=== PATIENT | male | born 1950 | race Caucasian/White ===

== ENCOUNTER → 2019-04-01 | Outpatient (CLI) | payer OTHER ==
[~2019-04-01] MED LIST: ASCO-262 PO; DULO30CA49 PO; FINA5TAB6 PO; LISI-552 PO; METF-397 PO; MULT-1029 PO; PHEN-640 PO; PREG75CA PO; SIMV40TA4 PO; SULF1TAB35 PO; TAMS0.4C98 PO; TIOT4MIS2 IH
== END ==
LOC: EDSEX 05:56 → PREOP 05:56
PROVIDERS: ATTEND Urology
DX: Z01.818 Encounter for other preprocedural examination (principal); N40.1 Benign prostatic hyperplasia with lower urinary tract symptoms; R33.9 Retention of urine, unspecified

== ENCOUNTER 2019-04-02 06:56 | Day surgery (SDC) | payer MEDICARE, OTHER ==
[2019-04-02] VITALS (9 sets, daily range): BP systolic 114–146; BP diastolic 66–88
[~2019-04-02] VITALS: Ht 185.4 cm; Wt 95.3 kg
--- NOTE | 2019-04-02 06:56 | Progress Note-Pre Operative ---
Pre-Operative Progress Note H&P Reviewed The H&P was reviewed, patient examined and no changes noted. Date Seen by Provider: Apr 02, 2019 Time Seen by Provider: 07:04 Date H&P Reviewed: Apr 02, 2019 Time H&P Reviewed: 07:04 Pre-Operative Diagnosis: BPH WITH PROSTATISM REFRACTORY TO MEDICAL TREATMENT NASRA BILLY MD Apr 02, 2019 06:56
[2019-04-02] MEDS: LACTATED RINGERS 1,000 ML IV PRN ×2 (07:40→09:10)
[2019-04-02] MEDS ORDERED: cefTRIAXone 1,000 MG/SWFI 10 ML IV PUSH IV ONE ×2 (08:00)
[2019-04-02] MEDS ORDERED: CATHETER FLUSH 10 ML SYR IV PRN (08:00)
[2019-04-02] MEDS ORDERED: MULT-1029 PO (08:16)
[2019-04-02] MEDS ORDERED: FINA5TAB6 PO (08:16)
[2019-04-02] MEDS ORDERED: LISI-552 PO (08:16)
[2019-04-02] MEDS ORDERED: DULO30CA49 PO (08:16)
[2019-04-02] MEDS ORDERED: TAMS0.4C98 PO (08:16)
[2019-04-02] MEDS ORDERED: PREG75CA PO (08:16)
[2019-04-02] MEDS ORDERED: TIOT4MIS2 IH (08:16)
[2019-04-02] MEDS ORDERED: METF-397 PO (08:16)
[2019-04-02] MEDS ORDERED: SIMV40TA4 PO (08:16)
[2019-04-02] MEDS ORDERED: ASCO-262 PO (08:16)
[2019-04-02] MEDS ORDERED: proPOfol 200 MG/20 ML (DIPRIVAN) VIAL IV ONE (08:25)
[2019-04-02] MEDS ORDERED: fentaNYL INJECTION 100 MCG/2 ML AMP ONE (08:25)
[2019-04-02] MEDS ORDERED: MIDAZOLAM 2 MG/2 ML (VERSED) VIAL ONE (08:26)
[2019-04-02] MEDS ORDERED: LIDOCAINE PF 2% 5 ML (XYLOCAINE) VIAL ONE (09:06)
[2019-04-02] MEDS ORDERED: ONDANSETRON 4 MG/2 ML (SDV) Z0FRAN ONE (09:06)
[2019-04-02] MEDS ORDERED: SEVOFLURANE (ULTANE) 15 ML INHAL SOLN ONE ×2 (09:06→09:26)
--- NOTE | 2019-04-02 09:37 | Progress Note-Post Operative ---
Post-Operative Progess Note Surgeon (s)/Licensed Funeral Director And Embalmer (s) Surgeon NASRA BILLY MD Licensed Funeral Director And Embalmer: NONE Pre-Operative Diagnosis BPH WITH PROSTATISM REFRACTORY TO MEDICAL TREATMENT Post-Operative Diagnosis SAME Procedure & Operative Findings Date of Procedure 04/02/19 Procedure Performed/Findings UROLIFT IMPLANTS Anesthesia Type GENERAL Estimated Blood Loss Estimated blood loss (mL): NEGLIGIBLE Specimens/Packing Specimens Removed NONE Packing: NONE NASRA BILLY MD Apr 02, 2019 09:37
--- NOTE | 2019-04-02 09:39 | Discharge Inst-Urology ---
Discharge Inst-Urology Reconcile Patient Problems Problems Reviewed?: Yes Patient Instructions/Follow Up Plan/Assessment/Instructions Please make appointment to been seen in office in 2 weeks. Rest till then Keep bowels soft and moving Continue Flomax and Finasteride till office appointment Increase oral fluids for 48 hours and then as needed. Diet as tolerated. If questions or concerns contact your physician Or seek help at emergency department. NASRA BILLY MD Apr 02, 2019 09:39
[2019-04-02] MEDS ORDERED: ONDANSETRON 4 MG/2 ML (SDV) Z0FRAN IVP PRN (09:45)
[2019-04-02] MEDS ORDERED: morphine INJ 10 MG/ML 1ML (SYR OR VIAL) IVP ONE (09:45)
[2019-04-02] MEDS ORDERED: PHENAZOPYRIDINE 100 MG (PYRIDIUM) TABLET ONE (10:27)
--- NOTE | 2019-04-02 10:38 | NUR ---
PYRIDIUM 200 MG GIVEN PO FOR C/O PELVIC PRESSURE/DISCOMFORT RATED 3.
[2019-04-02] MEDS ORDERED: PHENAZOPYRIDINE 100 MG (PYRIDIUM) TABLET PO ONE (10:45)
[2019-04-02] MEDS ORDERED: SULF1TAB35 PO (11:25)
[2019-04-02] MEDS ORDERED: PHEN-640 PO (11:25)
--- NOTE | 2019-04-02 11:45 | NUR ---
HAS BEEN RESTING QUIETLY IN BED WITH EYES CLOSED. AWAKENS EASILY, PELVIC PRESSURE/DISCOMFORT RATED 2. HAS HAD A FEW DROPS OF BLOOD FROM PENIS WHEN UP TO BR, BUT NO ACTIVE BLEEDING. TAKING PO FLUIDS WITHOUT PROBLEM.
--- NOTE | 2019-04-02 13:07 | OPERATIVE REPORT ---
DATE OF SERVICE: 04/02/2019 PREOPERATIVE DIAGNOSIS: Benign prostatic hypertrophy with prostatism refractory to medical treatment. POSTOPERATIVE DIAGNOSIS: Benign prostatic hypertrophy with prostatism refractory to medical treatment. OPERATION PERFORMED: UroLift implant. SURGEON: Jesus Billy MD ANESTHESIA: General. COMPLICATIONS: None. DESCRIPTION OF PROCEDURE: Under satisfactory general anesthesia, the patient in lithotomy position, genitalia were prepped and draped in the usual sterile fashion. Special UroLift scope was introduced with camera guidance into the bladder. Again, visualized the enlarged lateral lobe of the prostate causing bladder neck obstruction. I went ahead and inserted four UroLift implants, two proximal about 1.5 cm distal to the bladder neck and the other two just proximal to the veru. There was a good channel opening. The bladder was evacuated and the scope was removed. I went through the cystoscope just to make sure of the nice channel and to confirm that I emptied the bladder, removed the cystoscope. The patient tolerated the procedure and anesthesia well and was sent to recovery room in stable condition. PLAN: We will keep him from now on the Flomax and the finasteride until he stays in the office in two weeks and then we will try without them. Job ID: [id number] DocumentID: [id number] Dictated Date: 04/02/2019 09:41:43 Mechanical Supervisor Date: 04/02/2019 13:06:21 Dictated By: JESUS BILLY MD
== END 2019-04-02 12:15 | disposition home or self-care (01) ==
LOC: EDSEX → SDC 06:56
PROVIDERS: ATTEND Urology
DX: N40.0 Benign prostatic hyperplasia without lower urinary tract symptoms (principal); N32.0 Bladder-neck obstruction; I10 Essential (primary) hypertension; E78.5 Hyperlipidemia, unspecified; F17.210 Nicotine dependence, cigarettes, uncomplicated; E11.40 Type 2 diabetes mellitus with diabetic neuropathy, unspecified; J44.9 Chronic obstructive pulmonary disease, unspecified; Z98.890 Other specified postprocedural states; Z79.84 Long term (current) use of oral hypoglycemic drugs; Z79.899 Other long term (current) drug therapy
CPT/HCPCS: 82962; 87081

== ENCOUNTER 2021-08-04 05:41 | Outpatient (CLI) | payer MEDICARE, OTHER ==
[~2021-08-04 05:41] MED LIST changes: -LISI-552 PO; +LISI20TA26 PO; +SIMV40TA25 PO; -SIMV40TA4 PO; -SULF1TAB35 PO; +SULF1TAB38 PO; -TAMS0.4C98 PO; +TMSL.4C PO
[2021-09-09] MEDS ORDERED: APIX5TAB PO (12:41)
[2021-09-09] MEDS ORDERED: CLOP75TA69 PO (12:41)
== END 2021-09-09 13:05 | disposition home or self-care (01) ==
LOC: PREOP 05:41
PROVIDERS: ATTEND Urology
DX: Z01.818 Encounter for other preprocedural examination (principal)

== ENCOUNTER 2021-09-09 05:42 | Outpatient (CLI) | payer MEDICARE, OTHER ==
[~2021-09-09] VITALS: Ht 185.5 cm; Wt 90.8 kg
[2021-09-09] MEDS ORDERED: CLOP75TA69 PO (12:41)
[2021-09-09] MEDS ORDERED: APIX5TAB PO (12:41)
== END 2021-09-09 12:48 | disposition home or self-care (01) ==
LOC: PREOP 05:42
PROVIDERS: ATTEND Urology
DX: Z01.818 Encounter for other preprocedural examination (principal)

== ENCOUNTER 2021-09-12 07:34 | Day surgery (SDC) | payer MEDICARE, OTHER ==
[~2021-09-12] VITALS: Ht 185.5 cm; Wt 90.8 kg
[2021-09-12] VITALS (11 sets, daily range): BP systolic 107–144; BP diastolic 55–90
[~2021-09-12 07:34] MED LIST changes: +APIX5TAB PO; +CLOP75TA69 PO
[2021-09-12] MEDS ORDERED: cefTRIAXone 1 GM PRE-MIX 50 ML IV ONE (07:45)
[2021-09-12] MEDS: LACTATED RINGERS 1,000 ML IV SCH ×3 (08:00→13:56)
--- NOTE | 2021-09-12 08:40 | Progress Note-Pre Operative ---
Pre-Operative Progress Note H&P Reviewed The H&P was reviewed, patient examined and no changes noted. Date Seen by Provider: Sep 12, 2021 Time Seen by Provider: 08:40 Date H&P Reviewed: Sep 12, 2021 Time H&P Reviewed: 08:40 Pre-Operative Diagnosis: BPH WITH PROSTATISM AND RETENTION NASRA BILLY MD Sep 12, 2021 08:40
[2021-09-12] MEDS ORDERED: MILK OF MAGNESIA 400 MG/5 ML 30 ML UDC PO PRN (08:45)
[2021-09-12] MEDS ORDERED: BELLADONNA ALK/OPIUM (B & O) 30 MG SUPP PR PRN (08:45)
--- NOTE | 2021-09-12 08:45 | Progress Note-Post Operative ---
Post-Operative Progess Note Surgeon (s)/Data Center Solutions Architect (s) Surgeon NASRA BILLY MD Data Center Solutions Architect: NONE Pre-Operative Diagnosis BPH WITH PROSTATISM AND RETENTION Post-Operative Diagnosis SAME Procedure & Operative Findings Date of Procedure 09/12/21 Procedure Performed/Findings TURP Anesthesia Type GENERAL Estimated Blood Loss Estimated blood loss (mL): 100CC Specimens/Packing Specimens Removed PROSTATE CHIPS Packing: NONE NASRA BILLY MD Sep 12, 2021 08:45
[2021-09-12] MEDS ORDERED: TIZA-186 PO (08:51)
[2021-09-12] MEDS ORDERED: ALFU10TA12 PO (08:51)
[2021-09-12] MEDS ORDERED: proPOfol 200 MG/20 ML (DIPRIVAN) VIAL IV ONE (09:26)
[2021-09-12] MEDS ORDERED: ONDANSETRON 4 MG/2 ML (SDV) Z0FRAN ONE (09:26)
[2021-09-12] MEDS ORDERED: ROCURONIUM 10 MG/ML 5 ML SYRINGE IV ONE (09:26)
[2021-09-12] MEDS ORDERED: fentaNYL INJ 100 MCG/2 ML AMP ONE (09:26)
[2021-09-12] MEDS ORDERED: MIDAZOLAM 2 MG/2 ML (VERSED) VIAL ONE (09:26)
[2021-09-12] MEDS ORDERED: LIDOCAINE PF 2% 5 ML (XYLOCAINE) VIAL ONE (09:26)
[2021-09-12] MEDS ORDERED: GLYCOPYRROLATE 0.2 MG/ML (ROBINUL) 2 ML VIAL ONE (10:39)
[2021-09-12] MEDS ORDERED: NEOSTIGMINE 3 MG/3 ML VIAL ONE (10:39)
[2021-09-12] MEDS ORDERED: SEVOFLURANE (ULTANE) 15 ML INHAL SOLN ONE (10:41)
[2021-09-12] MEDS ORDERED: PROMETHAZINE INJ 25 MG/ML (PHENERGAN) AMP IVP ONE (11:00)
[2021-09-12] MEDS ORDERED: morphine INJ 10 MG/ML 1ML (SYR OR VIAL) IVP ONE (11:00)
[2021-09-12] MEDS ORDERED: ONDANSETRON 4 MG/2 ML (SDV) Z0FRAN IVP PRN (11:00)
[2021-09-12] MEDS ORDERED: MEPERIDINE (DEMEROL) INJ 50 MG/ML IVP ONE (11:00)
[2021-09-12] MEDS ORDERED: morphine INJ 10 MG/ML 1ML (SYR OR VIAL) ONE (11:16)
--- NOTE | 2021-09-12 15:32 | OPERATIVE REPORT ---
DATE OF SERVICE: 09/12/2021 PREOPERATIVE DIAGNOSIS: Benign prostatic hyperplasia with prostatism and retention. POSTOPERATIVE DIAGNOSIS: Benign prostatic hyperplasia with prostatism and retention. OPERATION PERFORMED: Transurethral resection of the prostate. SURGEON: Nasra Billy MD ANESTHESIA: General. COMPLICATIONS: None. DESCRIPTION OF PROCEDURE: Under satisfactory general anesthesia, the patient in lithotomy position, genitalia were prepped and draped in the usual sterile fashion. Urethra was dilated with Erlinda sound to #30 to accommodate 27-Finnish Luna resectoscope easily. Again, visualized a large prostate with lateral lobe meeting in the midline causing complete bladder neck obstruction. I started resecting the roof from 1 to 11 o'clock position, then the lateral lobes down to the 6 o'clock position, then the floor and apical tissues. Previously placed UroLift tacks were either removed surgically or into the actual prostate tissue. There was no more visible ones. The prostate was well resected with adequate channel and hemostasis satisfactory. Prostatic chips were evacuated. Cystoscopy confirmed intact ureteric orifices zero and sphincter with good reflex. Resectoscope was removed and a 22-Finnish 3-way 30 mL balloon catheter was inserted in the bladder. The balloon inflated to 45 mL, put on traction, connected to CBI, the return of which was clear. Estimated blood loss was 100 mL, none of which was replaced. The patient tolerated the procedure and anesthesia well and was sent to recovery room in stable condition. Job ID: [id number] DocumentID: [id number] Dictated Date: 09/12/2021 10:57:13 [employer] Date: 09/12/2021 15:30:58 Dictated By: NASRA BILLY MD
[2021-09-12] MEDS: DOCUSATE SODIUM 100 MG (COLACE) CAP PO SCH (19:22)
[2021-09-13] MEDS: LACTATED RINGERS 1,000 ML IV SCH ×4 (00:01→17:13)
[2021-09-13 03:03] VITALS: BP 111/56
[2021-09-13] MEDS: DOCUSATE SODIUM 100 MG (COLACE) CAP PO SCH ×2 (08:13→20:18)
[2021-09-13 08:24] VITALS: BP 175/74
--- NOTE | 2021-09-13 09:23 | Progress Note - Urology ---
Progress Note-Urology Progress Notes/Assess & Plan Progress/Assessment & Plan DOING AND FEELING WELL. AFEBRILE, VSS. URINE CLEAR AND [place]IE. DC SHOEMAKER AND MANAGE ACCORDINGLY Final Diagnosis BPH WITH RETENTION NASRA BILLY MD Sep 13, 2021 09:23
--- NOTE | 2021-09-13 09:37 | Anesthesia-General Post-Op ---
General Patient Condition Mental Status/LOC: Same as Preop Cardiovascular: Satisfactory Nausea/Vomiting: Absent Respiratory: Satisfactory Pain: Controlled Complications: Absent Post Op Complications Complications None Follow Up Care/Instructions Patient Instructions None needed. Anesthesia/Patient Condition Patient Condition Patient is doing well, no complaints, stable vital signs, no apparent adverse anesthesia problems. No complications reported per nursing. RAHEL CELMONS CRNA Sep 13, 2021 09:36
[2021-09-13 11:50] VITALS: BP 150/67
[2021-09-13 15:30] VITALS: BP 143/73
[2021-09-13 17:46] VITALS: BP 143/73
[2021-09-13 19:30] VITALS: BP 116/59
[2021-09-14 00:11] VITALS: BP 121/71
[2021-09-14] MEDS: LACTATED RINGERS 1,000 ML IV SCH (01:46)
[2021-09-14 04:34] VITALS: BP 133/67
--- NOTE | 2021-09-14 06:44 | Progress Note - Urology ---
Progress Note-Urology Progress Notes/Assess & Plan Progress/Assessment & Plan doing very well. voiding well. good stream and control. urine tinged. home with instructions Final Diagnosis bph NASRA BILLY MD Sep 14, 2021 06:44
--- NOTE | 2021-09-14 06:47 | Discharge Inst-Urology ---
Discharge Inst-Urology Reconcile Patient Problems Problems Reviewed?: Yes Final Diagnosis BPH Patient Instructions/Follow Up Plan/Assessment/Instructions Please make appointment to been seen in office in 2 weeks. Rest till then Keep bowels soft and moving Call pharmacy of choice for Rx for Bactrim DS BID for 7 days and Pyridium 200 TID PRN Increase oral fluids for 48 hours and then as needed. Diet as tolerated. If questions or concerns contact your physician Or seek help at emergency department. NASRA BILLY MD Sep 14, 2021 06:47
[2021-09-14 07:51] VITALS: BP 136/68
== END 2021-09-14 09:15 | disposition home or self-care (01) ==
LOC: SDC 07:34 → 4TH 11:57 → SDC 09-14 09:15
PROVIDERS: ATTEND Urology
DX: N40.1 Benign prostatic hyperplasia with lower urinary tract symptoms (principal); R33.8 Other retention of urine; N13.8 Other obstructive and reflux uropathy; I10 Essential (primary) hypertension; J44.9 Chronic obstructive pulmonary disease, unspecified; F17.210 Nicotine dependence, cigarettes, uncomplicated; E11.40 Type 2 diabetes mellitus with diabetic neuropathy, unspecified; Z79.02 Long term (current) use of antithrombotics/antiplatelets; Z79.01 Long term (current) use of anticoagulants; Z79.84 Long term (current) use of oral hypoglycemic drugs; Z79.899 Other long term (current) drug therapy
CPT/HCPCS: 82947; 86850; 86900; 86901; 87081; 94664

== ENCOUNTER → 2022-02-21 | Outpatient (CLI) | payer OTHER ==
[~2022-02-21] MED LIST changes: +ALFU10TA12 PO; +HOLD METFORMIN - RECEIVED CONTRAST 20 ML VIAL IV SCH; +IOHEXOL 350 MG/ML 100 ML (OMNIPAQUE 350) VIAL IV ONE; +NS 100 ML (IVPB) BAG IV ONE; +TIZA-186 PO
[2022-02-21 12:21] LABS: CREATININE SERUM 0.98 MG/DL (0.60-1.30)
[2022-02-21] MEDS: CATHETER FLUSH 10 ML SYR IV PRN ×2 (13:01→13:02)
--- NOTE | 2022-02-21 13:31 | Diagnostic Imaging Report ---
EXAMINATION: CT abdomen and pelvis with and without intravenous contrast. TECHNIQUE: Precontrast acquisitions were acquired through the abdomen and pelvis. Multiple contiguous axial images were obtained through the abdomen and pelvis after the administration of intravenous contrast. All CT scans use one or more of the following dose optimizing techniques: Automated exposure control, MA and/or KvP adjustment based on patient size and exam type or iterative reconstruction. HISTORY: Anterior urethral stricture. COMPARISON: None available. FINDINGS: Lung bases: The lung bases are clear. Solid organs: The liver is normal without focal lesion. Multiple layering hyperdense stones within the gallbladder. There is no biliary ductal dilation. Pancreas is normal. Spleen is normal. Adrenal glands are normal. There is a right renal cyst which requires no follow-up. There are nonobstructing left renal calculi measuring up to 0.2 cm. There is no hydronephrosis. Bowel: The stomach and small bowel are normal without obstruction. There are a few scattered colonic diverticula. The appendix is normal. Peritoneum: There is no intraperitoneal free fluid or free air. No suspicious lymphadenopathy. Vasculature: Calcification of the aorta without aneurysm. Musculoskeletal: Degenerative changes of the spine without suspicious osseous lesion or compression fracture. Surgical changes from posterior laminectomy. Pelvis: Prostate gland is enlarged with surgical changes from prior transurethral resection of the prostate. There is asymmetric right bladder wall thickening. IMPRESSION: 1. Asymmetric right bladder wall thickening. Recommend correlation with direct visualization to exclude neoplastic process. Differential consideration could also include thickening and trabeculation from chronic bladder outlet obstruction. 2. Large appearance of the prostate gland with surgical changes from prior transurethral resection of the prostate. 3. Nonobstructing left renal calculi measuring up to 0.2 cm without hydronephrosis. Otherwise, unremarkable appearance of the kidneys. Dictated by: Dictated on workstation # [id number]
== END ==
LOC: RAD 11:36
PROVIDERS: ATTEND Urology
DX: N32.9 Bladder disorder, unspecified (principal); N20.0 Calculus of kidney; Z98.890 Other specified postprocedural states; N35.919 Unspecified urethral stricture, male, unspecified site
CPT/HCPCS: 36415; 74178; 82565; 84520

== ENCOUNTER → 2022-02-23 | Outpatient (CLI) | payer OTHER ==
[~2022-02-23] MED LIST changes: +DIATRIZOATE 30% 300 ML (CYSTOGRAFIN) VIAL UR ONE; -HOLD METFORMIN - RECEIVED CONTRAST 20 ML VIAL IV SCH; -IOHEXOL 350 MG/ML 100 ML (OMNIPAQUE 350) VIAL IV ONE; -NS 100 ML (IVPB) BAG IV ONE
--- NOTE | 2022-02-23 18:07 | Diagnostic Imaging Report ---
Retrograde urethral cystogram. Indication: Stricture The preliminary film is unremarkable. Following aseptic preparation of the skin, a syringe was inserted into the urethral meatus. Cystografin was subsequently infused. There did appear to be a focal area of narrowing involving the anterior most portion of the urethra. However this area of apparent narrowing seemed only transitory. Contrast freely flowed through the urethra posteriorly to the base of bladder. A delayed image does show a small focal rounded defect along the anterior wall of the anterior urethra near the urethral meatus (page 10 of 20). This may represent a small focal area of scar formation. The patient tolerated the procedure well. Impression: 1. The urethra appears to be patent for the most part but there is a suggestion of a small focal collection of scar formation along the anterior aspect of the anterior urethra. 2. These results were discussed with Dr. Rosas. Dictated by: Dictated on workstation # [id number]
== END ==
LOC: RAD 14:45
PROVIDERS: ATTEND Urology
DX: N35.919 Unspecified urethral stricture, male, unspecified site (principal)
CPT/HCPCS: 74450